=== PATIENT | female | born 1955 | race Two or more races ===

== ENCOUNTER 2025-01-01 16:05 | Emergency (ER) | payer OTHER ==
[~2025-01-01] VITALS: Ht 160 cm; Wt 66.7 kg
[2025-01-01] MEDS ORDERED: ZESTRIL20 MG PO (17:49)
[2025-01-01] MEDS ORDERED: CEFTRIAXONE SODIUM 1,000 MG VIAL IM STA (18:22)
[2025-01-01] MEDS ORDERED: CEFTRIAXONE SODIUM 1,000 MG VIAL ONE (19:47)
[2025-01-01] MEDS ORDERED: LIDOCAINE HCL 1% 10ML VIAL ONE (19:48)
== END 2025-01-01 20:03 | disposition home or self-care (01) ==
LOC: ER 16:05
DX: N30.90 Cystitis, unspecified without hematuria (principal)